=== PATIENT | female | born 2000 | race Caucasian/White ===

== ENCOUNTER 2022-04-30 11:41 | Observation (INO) ==
[2022-04-30 12:58] LABS: Basophils # (auto) 0.04 K/uL (0-0.2); Basophils % (auto) 0.6 %; Eosinophils # (auto) 0.06 K/uL (0-0.50); Eosinophils % (auto) 0.8 %; Hematocrit (blood only) 40.4 % (34.1-44.9); Immature Granulocytes # (auto) 0.03 K/uL (0.00-0.02); Immature Granulocytes % (auto) 0.4 %; Lymphocytes % (auto) 27.8 %; Mean Corpuscular Hemoglobin 29.2 pg (25.0-34.0); Mean Corpuscular Hgb Conc 34.7 g/dL (32.0-36.0); Mean Corpuscular Volume 84.2 fL (80.0-100.0); Mean Platelet Volume 10.1 fL (9.4-12.3); Monocytes # (auto) 0.49 K/uL (0.24-0.82); Monocytes % (auto) 6.8 %; Neutrophils # (auto) 4.57 K/uL (1.4-6.5); Neutrophils % (auto) 63.6 %; Platelet Count 319 K/uL (130-400); RDW Coefficient of Variation 12.3 % (11.5-14.5); RDW Standard Deviation 37.9 fL (36.4-46.3); White Blood Count 7.19 K/ul (4.8-10.8)
[2022-04-30 13:11] LABS: Acetaminophen < 3 ug/ml (10-30); Salicylate < 3.0 mg/dl (3.0-30)
[2022-04-30 13:13] LABS: Albumin Globulin Ratio 1.7 (0.9-2); Albumin Level 4.5 gm/dl (3.4-5.0); BUN Creatinine Ratio 19.7 (10-20); Bilirubin,Total 0.6 mg/dl (0.2-1.0); Calcium 9.3 mg/dl (8.5-10.1); Creatinine Clr Calc Pharmacy 99.1 ml/min; Est GFR (African American) 129.1 ml/min; Est GFR (Non-African American) 111.3 ml/min; Globulin 2.6 gm/dl (2.5-4.0); Potassium 3.9 mmol/L (3.5-5.1); Total Protein 7.1 gm/dl (6.0-8.3)
[2022-04-30] MEDS ORDERED: SODIUM CHLORIDE 0.9% 1000ML 1,000 ML IV ONE (13:37)
--- NOTE | 2022-04-30 14:08 | XRay Report ---
XR chest 1V portable HISTORY: Altered mental status. COMPARISON: None. FINDINGS: The lungs are clear. Cardiac silhouette is normal in size. No pleural effusions. No pneumot horax. IMPRESSION: No acute process. ACT 112: Negative or not required by law. Electronically signed by: Joseph Batista M.D. 04/30/2022 2:06 PM
--- NOTE | 2022-04-30 14:14 | Emergency Department Note ---
Impression & Plan AMS (altered mental status), Sinus congestion ED Provider Note INFORMANT: Patient and mother ED PROVIDER(S): Bar Hooks MD CHIEF COMPLAINT: Illness PLAN: Disposition: Admitted Condition: Good Outpatient prescription management: none Referral: None MEDICAL DECISION MAKING: Patient presented complaints of illness. She noted a recent diagnosis of a sinus infection and was taking amoxicillin. She had occasional myoclonic jerks on examination. She had an IV established. She was hydrated. Patient underwent a bio fire respiratory panel testing. She was found to have a non- COVID coronavirus. Chest x-ray was unremarkable CT imaging of the brain and head revealed some sinus disease but no evidence of abscess, tumor, or other acute pathology. Patient initially did not have any headache or meningeal findings. Her CBC, chemistry panel, toxicology screen and test were negative. The patient will need further management in the hospital. Patient was evaluated by the manager policy as well. We discussed the findings. Additional consultation can be made after hospitalization. I did discuss the case [facility] He did evaluate the patient in the ED. He did request a lumbar puncture be performed to help with further diagnosis and this was done as noted below. Patient was admitted by internal medicine for further management. Triage Nursing notes reviewed and agree them. Vital Signs: reviewed and remarkable for no significant abnormalities Prior /Outside records reviewed: none Differential diagnosis: Infection, hypoglycemia, electrolyte abnormalities, overdose, toxicologic, cardiac sources, intracerebral event, neurologic, trauma, as well as other pa thologies. Diagnostics, as interpreted by me: ECG: none Cardiac Monitoring: none Medical decision rules: none Imaging studies: Chest x-ray. Findings: A chest x-ray was performed and revealed no pneumothorax, effusion, infiltrate, pulmonary edema, free air under the diaphragm, or wide mediastinum. Impression: No acute disease. Head CT: A noncontrast CT scan of the head was performed and was negative for tumor, fracture, intracranial hemorrhage, or other acute pathology. Sinus disease noted. I refer you to the EMR for further details. HPI: The patient is a 21 year old female who presents to the Emergency Room with complaints of illness. This started about 4- 5 days ago and is persisting. Patient's mother is present and helps with history. Patient states that she had sinus congestion after returning from [place] and went to urgent care 5 days ago. She was prescribed amoxicillin. She stopped taking this yesterday. She was told she had a sinus infection due to congestion. Mother notes that the patient started to have some unusual behavior as she was somewhat combative, had some tics, and was outspoken. That was not her normal behavior. Mother notes that in 2017 the patient had an episode where she was presumed to have a viral infection and had a change in mental status. Mother states work-up from a medical standpoint including neurology and psychiatry did not reveal an obvious source. Patient was treated with amantadine and got better. She returned back to baseline and has been a normal student doing very well in school. No significant psychiatric history per the mother. No trauma reported. The patient also notes the following associated symptoms, runny nose and occasional cough. The patient has taken no other medication for relieving factors. Current pain is rated as 0/10. Pt denies LOC, headache, fevers, chills, diaphoresis, visual changes, neck pain, chest pain, breathing difficulties, naus ea, vomiting, abdominal pain, back pain, diarrhea, urinary symptoms, numbness, weakness, lymphadenopathy, rash, or other complaints. PAST MEDICAL HISTORY: See Below, no chronic illness PAST SURGICAL HISTORY: See Below, none SOCIAL HISTORY: See Below, [employer] student HOME MEDICATIONS: See Below ALLERGIES: See Below VITALS: See Below PHYSICAL EXAMINATION: GENERAL: Awake, alert, nontoxic-appearing, in no distress HENT: Normocephalic, atraumatic. Oropharynx unremarkable. No sinus tenderness to palpation. EYES: Normal conjunctiva. Sclera non-icteric. NECK: Inspection normal. Non-tender. Supple. No nuchal rigidity. Negative jolt accentuation. FROM. No masses. RESPIRATORY: Clear to auscultation. No wheezes. No rales. Normal respiratory effort. CARDIAC: Normal rate. Normal rhythm. No murmurs. No rubs. Extremities warm and well perfused. Pulses equal. No JVD. GI: Soft, non-distended. No tenderness to palpation. No rebound or guarding. No masses. RECTAL: Deferred. MUSCULOSKELETAL: Atraumatic. Chest examination reveals no tenderness. The back is symmetrical on inspection without obvious abnormality. There is no CVA tenderness to palpation. No joint edema. LOWER EXTREMITIES: Calves are equal size bilaterally and non-tender. No edema. No discoloration. NEURO: Exhibiting occasional myoclonic jerks. Following commands relatively well at times but then will not. Answering questions and speech is clear. Seems mildly confused but otherwise normal sensorium. No sensory or motor deficits noted. SKIN: No rash or jaundice noted. LUMBAR PUNCTURE: Indication: Altered mental status. Verbal consent was obtained after the risks and benefits were explained, including but not limited to headache, bleeding, scarring, infection, pain, and bone/joint/nerve damage. At t his time, the risks of the procedure are less than the risks of NOT performing the procedure. A time out was taken and the correct patient and site identified. The patient was placed in the right lateral decubitus position and the back was prepped and draped in the standard fashion with betadine. The L3 intervertebral space was identified, anesthetized with lidocaine, and the spinal needle was i nserted through the skin with the bevel parallel to the dural fibers. The needle was carefully advanced into the sac and 4 tubes of clear CSF was obtained. There was an initial tinge of blood noted. The patient did have several episodes of coughing and occasional jerks during the insertion. The blood cleared visibly through the first tube. The stylet was replaced and the needle was removed. A bandaid was placed and the patient was placed in the supine position. The patient tolerated the procedure well and there were no complications. Past Med/Surg History Social History Smoking Status: Never smoker Feels Safe at Home: Yes Home Meds Home Medications Medication Instructions Recorded Confirmed amoxicillin 400 mg/5 mL oral 04/30/22 suspension famotidine 20 mg tablet 20 mg 04/30/22 norgestimate 0.18 mg/0.215 mg/0.25 tab 04/30/22 mg-ethinyl estradiol 25 mcg tablet ([id number]) Results & Data (ED) Vital Signs Vital Signs - 24 hr 04/30/22 11:45 04/30/22 11:41 04/30/22 15:40 Temperature 36.7 C Temperature Source Temporal Artery Scan Pulse Rate 87 Pulse Rate [Apical] 60 Pulse Rhythm Regular Pulse Rhythm [Apical] Regular Respiratory Rate 20 16 16 Respiratory Effort / Characteristics Non-Labored Non-Labored Non-Labored Spontaneous Respiratory Depth Normal Normal Normal Respiratory Pattern Regular Blood Pressure 112/85 Blood Pressure [Left Arm] 127/64 Blood Pressure Mean 94 Blood Pressure Mean [Left Arm] 85 Pulse Oximetry 96 97 Oxygen Delivery Method Room Air Sepsis Recent Fever Within 48 Hours No Sepsis New/Unexplained Change in Mental Status No Sepsis Action Taken by Nursing No Action Required 04/30/22 17:52 Temperature Temperature Source Pulse Rate Pulse Rate [Apical] 84 Pulse Rhythm Pulse Rhythm [Apical] Regular Respiratory Rate 16 Respiratory Effort / Characteristics Non-Labored Spontaneous Respiratory Depth Normal Respiratory Pattern Blood Pressure Blood Pressure [Left Arm] 110/60 Blood Pressure Mean Blood Pressure Mean [Left Arm] 76 Pulse Oximetry 97 Oxygen Delivery Method Room Air Sepsis Recent Fever Within 48 Hours Sepsis New/Unexplained Change in Mental Status Sepsis Action Taken by Nursing Laboratory Data 04/30/22 12:25 04/30/22 12:25 Lab Results 04/30/22 04/30/22 04/30/22 Range/Units 12:25 12:25 12:25 WBC 7.19 (4.8-10.8) K/ul RBC 4.80 (3.93-5.22) M/uL Hgb 14.0 (12.0-16.0) g/dl Hct 40.4 (34.1-44.9) % MCV 84.2 (80.0-100.0) fL MCH 29.2 (25.0-34.0) pg MCHC 34.7 (32.0-36.0) g/dL RDW Std Deviation 37.9 (36.4-46.3) fL RDW Coeff of Luci 12.3 (11.5-14.5) % Plt Count 319 (130-400) K/uL MPV 10.1 (9.4-12.3) fL Immature Gran % (Auto) 0.4 % Neut % (Auto) 63.6 % Lymph % (Auto) 27.8 % [place]han % (Auto) 6.8 % Eos % (Auto) 0.8 % Baso % (Auto) 0.6 % Neut # (Auto) 4.57 (1.4-6.5) K/uL Lymph # (Auto) 2.00 (1.2-3.4) K/uL [place] # (Auto) 0.49 (0.24-0.82) K/uL Eos # (Auto) 0.06 (0-0.50) K/uL Baso # (Auto) 0.04 (0-0.2) K/uL Immature Gran # (Auto) 0.03 H (0.00-0.02) K/uL Sodium 138 (136-145) mmol/L Potassium 3.9 (3.5-5.1) mmol/L Chloride 105 (98-107) mmol/L Carbon Dioxide 23 (21-32) mmol/L Anion Gap 10 (3-11) BUN 15 (6-23) mg/dl Creatinine 0.76 (0.6-1.2) mg/dl Est Cr Clr Drug Dosing 99.1 ml/min Est GFR ( Amer) 129.1 ml/min Est GFR (Non-Af Amer) 111.3 ml/min BUN/Creatinine Ratio 19.7 (10-20) Glucose 84 (70-99(Fasting)) mg/dl Calcium 9.3 (8.5-10.1) mg/dl Total Bilirubin 0.6 (0.2-1.0) mg/dl AST 22 (13-39) U/L ALT 15 (7-52) U/L Alkaline Phosphatase 68 (34-104) U/L Total Protein 7.1 (6.0-8.3) gm/dl Albumin 4.5 (3.4-5.0) gm/dl Globulin 2.6 (2.5-4.0) gm/dl Albumin/Globulin Ratio 1.7 (0.9-2) Procalcitonin (0-0.5) ng/ml TSH 2.795 (0.300-4.500) uIu/ml HCG, Qual (Negative) Fluid Comment CSF Appearance CSF Color Xanthrochromic CSF WBC (0-5) CSF RBC (0-) CSF Cell Count Tube # CSF Glucose (40-70) mg/dl CSF Total Protein (15-45) mg/dl Salicylates (3.0-30) mg/dl Acetaminophen (10-30) ug/ml Ethyl Alcohol mg/dL (<10.0) mg/dl Adenovirus (PCR) (NotDetected) B. pertussis DNA (PCR) (NotDetected) B.parapertussis DNA PCR (NotDetected) C. pneumoniae DNA (PCR) (NotDetected) Coronavirus OC43 (PCR) (NotDetected) Coronavirus HKU1 (PCR) (NotDetected) Coronavirus 229E (PCR) (NotDetected) SARS-CoV-2 (PCR) (NotDetected) Coronavirus NL63 (PCR) (NotDetected) Human Metapneumovir PCR (NotDetected) Influenza Type A (PCR) (NotDetected) Influenza Type B (PCR) (NotDetected) M. pneumoniae (PCR) (NotDetected) Parainfluenza 1 (PCR) (NotDetected) Parainfluenza 2 (PCR) (NotDetected) Parainfluenza 3 (PCR) (NotDetected) Parainfluenza 4 (PCR) (NotDetected) RSV (PCR) (NotDetected) Entero/Rhino (PCR) (NotDetected) 04/30/22 04/30/22 04/30/22 Range/Units 12:25 12:25 12:25 WBC (4.8-10.8) K/ul RBC (3.93-5.22) M/uL Hgb (12.0-16.0) g/dl Hct (34.1-44.9) % MCV (80.0-100.0) fL MCH (25.0-34.0) pg MCHC (32.0-36.0) g/dL RDW Std Deviation (36.4-46.3) fL RDW Coeff of Luci (11.5-14.5) % Plt Count (130-400) K/uL MPV (9.4-12.3) fL Immature Gran % (Auto) % Neut % (Auto) % Lymph % (Auto) % [place] % (Auto) % Eos % (Auto) % Baso % (Auto) % Neut # (Auto) (1.4-6.5) K/uL Lymph # (Auto) (1.2-3.4) K/uL [place] # (Auto) (0.24-0.82) K/uL Eos # (Auto) (0-0.50) K/uL Baso # (Auto) (0-0.2) K/uL Immature Gran # (Auto) (0.00-0.02) K/uL Sodium (136-145) mmol/L Potassium (3.5-5.1) mmol/L Chloride (98-107) mmol/L Carbon Dioxide (21-32) mmol/L Anion Gap (3-11) BUN (6-23) mg/dl Creatinine (0.6-1.2) mg/dl Est Cr Clr Drug Dosing ml/min Est GFR ( Amer) ml/min Est GFR (Non-Af Amer) ml/min BUN/Creatinine Ratio (10-20) Glucose (70-99(Fasting)) mg/dl Calcium (8.5-10.1) mg/dl Total Bilirubin (0.2-1.0) mg/dl AST (13-39) U/L ALT (7-52) U/L Alkaline Phosphatase (34-104) U/L Total Protein (6.0-8.3) gm/dl Albumin (3.4-5.0) gm/dl Globulin (2.5-4.0) gm/dl Albumin/Globulin Ratio (0.9-2) Procalcitonin (0-0.5) ng/ml TSH (0.300-4.500) uIu/ml HCG, Qual Negative (Negative) Fluid Comment CSF Appearance CSF Color Xanthrochromic CSF WBC (0-5) CSF RBC (0-) CSF Cell Count Tube # CSF Glucose (40-70) mg/dl CSF Total Protein (15-45) mg/dl Salicylates < 3.0 L (3.0-30) mg/dl Acetaminophen < 3 L (10-30) ug/ml Ethyl Alcohol mg/dL < 10.0 (<10.0) mg/dl Adenovirus (PCR) (NotDetected) B. pertussis DNA (PCR) (NotDetected) B.parapertussis DNA PCR (NotDetected) C. pneumoniae DNA (PCR) (NotDetected) Coronavirus OC43 (PCR) (NotDetected) Coronavirus HKU1 (PCR) (NotDetected) Coronavirus 229E (PCR) (NotDetected) SARS-CoV-2 (PCR) (NotDetected) Coronavirus NL63 (PCR) (NotDetected) Human Metapneumovir PCR (NotDetected) Influenza Type A (PCR) (NotDetected) Influenza Type B (PCR) (NotDetected) M. pneumoniae (PCR) (NotDetected) Parainfluenza 1 (PCR) (NotDetected) Parainfluenza 2 (PCR) (NotDetected) Parainfluenza 3 (PCR) (NotDetected) Parainfluenza 4 (PCR) (NotDetected) RSV (PCR) (NotDetected) Entero/Rhino (PCR) (NotDetected) 04/30/22 04/30/22 04/30/22 Range/Units 12:48 13:32 17:41 WBC (4.8-10.8) K/ul RBC (3.93-5.22) M/uL Hgb (12.0-16.0) g/dl Hct (34.1-44.9) % MCV (80.0-100.0) fL MCH (25.0-34.0) pg MCHC (32.0-36.0) g/dL RDW Std Deviation (36.4-46.3) fL RDW Coeff of Luci (11.5-14.5) % Plt Count (130-400) K/uL MPV (9.4-12.3) fL Immature Gran % (Auto) % Neut % (Auto) % Lymph % (Auto) % [place] % (Auto) % Eos % (Auto) % Baso % (Auto) % Neut # (Auto) (1.4-6.5) K/uL Lymph # (Auto) (1.2-3.4) K/uL [place] # (Auto) (0.24-0.82) K/uL Eos # (Auto) (0-0.50) K/uL Baso # (Auto) (0-0.2) K/uL Immature Gran # (Auto) (0.00-0.02) K/uL Sodium (136-145) mmol/L Potassium (3.5-5.1) mmol/L Chloride (98-107) mmol/L Carbon Dioxide (21-32) mmol/L Anion Gap (3-11) BUN (6-23) mg/dl Creatinine (0.6-1.2) mg/dl Est Cr Clr Drug Dosing ml/min Est GFR ( Amer) ml/min Est GFR (Non-Af Amer) ml/min BUN/Creatinine Ratio (10-20) Glucose (70-99(Fasting)) mg/dl Calcium (8.5-10.1) mg/dl Total Bilirubin (0.2-1.0) mg/dl AST (13-39) U/L ALT (7-52) U/L Alkaline Phosphatase (34-104) U/L Total Protein (6.0-8.3) gm/dl Albumin (3.4-5.0) gm/dl Globulin (2.5-4.0) gm/dl Albumin/Globulin Ratio (0.9-2) Procalcitonin < 0.05 (0-0.5) ng/ml TSH (0.300-4.500) uIu/ml HCG, Qual (Negative) Fluid Comment CSF Appearance Clear CSF Color Colorless Xanthrochromic No xanthochromia CSF WBC 6 H (0-5) CSF RBC 20 (0-) CSF Cell Count Tube # 3 CSF Glucose (40-70) mg/dl CSF Total Protein (15-45) mg/dl Salicylates (3.0-30) mg/dl Acetaminophen (10-30) ug/ml Ethyl Alcohol mg/dL (<10.0) mg/dl Adenovirus (PCR) Not Detected (NotDetected) B. pertussis DNA (PCR) Not Detected (NotDetected) B.parapertussis DNA PCR Not Detected (NotDetected) C. pneumoniae DNA (PCR) Not Detected (NotDetected) Coronavirus OC43 (PCR) Not Detected (NotDetected) Coronavirus HKU1 (PCR) DETECTED A* (NotDetected) Coronavirus 229E (PCR) Not Detected (NotDetected) SARS-CoV-2 (PCR) Not Detected (NotDetected) Coronavirus NL63 (PCR) Not Detected (NotDetected) Human Metapneumovir PCR Not Detected (NotDetected) Influenza Type A (PCR) Not Detected (NotDetected) Influenza Type B (PCR) Not Detected (NotDetected) M. pneumoniae (PCR) Not Detected (NotDetected) Parainfluenza 1 (PCR) Not Detected (NotDetected) Parainfluenza 2 (PCR) Not Detected (NotDetected) Parainfluenza 3 (PCR) Not Detected (NotDetected) Parainfluenza 4 (PCR) Not Detected (NotDetected) RSV (PCR) Not Detected (NotDetected) Entero/Rhino (PCR) Not Detected (NotDetected) 04/30/22 Range/Units 17:41 WBC (4.8-10.8) K/ul RBC (3.93-5.22) M/uL Hgb (12.0-16.0) g/dl Hct (34.1-44.9) % MCV (80.0-100.0) fL MCH (25.0-34.0) pg MCHC (32.0-36.0) g/dL RDW Std Deviation (36.4-46.3) fL RDW Coeff of Luci (11.5-14.5) % Plt Count (130-400) K/uL MPV (9.4-12.3) fL Immature Gran % (Auto) % Neut % (Auto) % Lymph % (Auto) % [place] % (Auto) % Eos % (Auto) % Baso % (Auto) % Neut # (Auto) (1.4-6.5) K/uL Lymph # (Auto) (1.2-3.4) K/uL [place] # (Auto) (0.24-0.82) K/uL Eos # (Auto) (0-0.50) K/uL Baso # (Auto) (0-0.2) K/uL Immature Gran # (Auto) (0.00-0.02) K/uL Sodium (136-145) mmol/L Potassium (3.5-5.1) mmol/L Chloride (98-107) mmol/L Carbon Dioxide (21-32) mmol/L Anion Gap (3-11) BUN (6-23) mg/dl Creatinine (0.6-1.2) mg/dl Est Cr Clr Drug Dosing ml/min Est GFR ( Amer) ml/min Est GFR (Non-Af Amer) ml/min BUN/Creatinine Ratio (10-20) Glucose (70-99(Fasting)) mg/dl Calcium (8.5-10.1) mg/dl Total Bilirubin (0.2-1.0) mg/dl AST (13-39) U/L ALT (7-52) U/L Alkaline Phosphatase (34-104) U/L Total Protein (6.0-8.3) gm/dl Albumin (3.4-5.0) gm/dl Globulin (2.5-4.0) gm/dl Albumin/Globulin Ratio (0.9-2) Procalcitonin (0-0.5) ng/ml TSH (0.300-4.500) uIu/ml HCG, Qual (Negative) Fluid Comment CSF Appearance CSF Color Xanthrochromic CSF WBC (0-5) CSF RBC (0-) CSF Cell Count Tube # CSF Glucose 44 (40-70) mg/dl CSF Total Protein 14.5 L (15-45) mg/dl Salicylates (3.0-30) mg/dl Acetaminophen (10-30) ug/ml Ethyl Alcohol mg/dL (<10.0) mg/dl Adenovirus (PCR) (NotDetected) B. pertussis DNA (PCR) (NotDetected) B.parapertussis DNA PCR (NotDetected) C. pneumoniae DNA (PCR) (NotDetected) Coronavirus OC43 (PCR) (NotDetected) Coronavirus HKU1 (PCR) (NotDetected) Coronavirus 229E (PCR) (NotDetected) SARS-CoV-2 (PCR) (NotDetected) Coronavirus NL63 (PCR) (NotDetected) Human Metapneumovir PCR (NotDetected) Influenza Type A (PCR) (NotDetected) Influenza Type B (PCR) (NotDetected) M. pneumoniae (PCR) (NotDetected) Parainfluenza 1 (PCR) (NotDetected) Parainfluenza 2 (PCR) (NotDetected) Parainfluenza 3 (PCR) (NotDetected) Parainfluenza 4 (PCR) (NotDetected) RSV (PCR) (NotDetected) Entero/Rhino (PCR) (NotDetected) Administered Medications Discontinued Medications Sodium Chloride (Nss 1000ml) 1,000 mls @ 999 mls/hr IV .Q1H1M ONE Stop: 04/30/22 14:37 Last Infusion: 04/30/22 14:58 Dose: 0 mls/hr Documented By: Admin: 04/30/22 13:30 Dose: 999 mls/hr Documented By: NMS Ioversol (Optiray 350 100ml) 80 ml IV ONCE ONE Stop: 04/30/22 14:29 Last Admin: 04/30/22 14:28 Dose: 80 ml Documented By: CISCO Imaging Data Radiologist's Impression: Chest X-Ray 04/30/22 13:36 XR chest 1V portable HISTORY: Altered mental status. COMPARISON: None. FINDINGS: The lungs are clear. Cardiac silhouette is normal in size. No pleural effusions. No pneumothorax. IMPRESSION: No acute process. ACT 112: Negative or not required by law. Electronically signed by: Joseph Batista M.D. 04/30/2022 2:[address] 04/30/22 13:36 CT SCAN OF THE BRAIN COMBO CLINICAL HISTORY: Change in mental status. Recent sinus infection. COMPARISON STUDY: No priors. TECHNIQUE: Axial CT scan of the brain is performed from the vertex to the skull base before and following the IV administration of 80 cc of Optiray 350. IV contrast was administered without complication. A dose lowering technique was utilized adhering to the principles of ALARA. The unenhanced scan was performed twice due to motion artifact. CT DOSE: 1612.45 mGy.cm FINDINGS: Brain parenchyma: The brain parenchyma is normal in appearance. There is no hemorrhage, mass effect, or evidence of acute territorial ischemia by CT criteria. No enhancing lesion is seen on the postcontrast series. Maravilla-white matter differentiation is preserved. No extra-axial fluid collection is seen. Ventricles, sulci, cisterns: Normal in configuration. Cavum septum pellucidum is incidentally noted. Intracranial vasculature: The visualized intracranial vasculature at the skull base is normal in appearance. The dural sinuses appear patent. Calvarium: Unremarkable. Sinuses and mastoids: There is mild to moderate mucosal thickening within the maxillary antra. Moderate to severe mucosal thickening is also seen within the anterior ethmoid sinuses. There is trace pleural thickening the frontal sinuses. The mastoid air cells are well pneumatized. Orbits: The bony orbits are grossly intact. IMPRESSION: 1. No acute intracranial abnormality. 2. Paranasal sinus disease as above. ACT 112: Negative or not required by law. Electronically signed by: Db Serrano M.D. 04/30/2022 2:38 PM Discharge Plan Visit Data Chief Complaint: Illness Stated Complaint: UNUSUAL BEHAVIOR ED Provider: Bar Hooks Discharge Problem: AMS (altered mental status), Sinus congestion Forms Stand Alone Forms: My [facility] Prescriptions Prescriptions: No Action famotidine 20 mg tablet 20 mg amoxicillin 400 mg/5 mL suspension for reconstitution norgestimate-ethinyl estradiol [[id number]] 0.18/0.215/0.25 mg-25 mcg tablet Referrals Referrals: PCP,NO [Primary Care Provider] -
[2022-04-30 14:17] LABS: Pregnancy Test, Serum Negative (Negative)
[2022-04-30] MEDS ORDERED: OPTIRAY 350 100ml IV ONE (14:28)
--- NOTE | 2022-04-30 14:39 | CT Scan Report ---
CT SCAN OF THE BRAIN COMBO CLINICAL HISTORY: Change in mental status. Recent sinus infection. COMPARISON STUDY: No priors. TECHNIQUE: Axial CT scan of the brain is performed from the vertex to the skull base before and follo wing the IV administration of 80 cc of Optiray 350. IV contrast was administered without complication . A dose lowering technique was utilized adhering to the principles of ALARA. The unenhanced scan was performed twice due to motion artifact. CT DOSE: 1612.45 mGy.cm FINDINGS: Brain parenchyma: The brain parenchyma is normal in appearance. There is no hemorrhage, mass effect, or evidence of acute territorial ischemia by CT criteria. No enhancing lesion is seen on the postcont rast series. Maravilla-white matter differentiation is preserved. No extra-axial fluid collection is seen. Ventricles, sulci, cisterns: Normal in configuration. Cavum septum pellucidum is incidentally noted. Intracranial vasculature: The visualized intracranial vasculature at the skull base is normal in appe arance. The dural sinuses appear patent. Calvarium: Unremarkable. Sinuses and mastoids: There is mild to moderate mucosal thickening within the maxillary antra. Modera te to severe mucosal thickening is also seen within the anterior ethmoid sinuses. There is trace pleu ral thickening the frontal sinuses. The mastoid air cells are well pneumatized. Orbits: The bony orbits are grossly intact. IMPRESSION: 1. No acute intracranial abnormality. 2. Paranasal sinus disease as above. ACT 112: Negative or not required by law. Electronically signed by: Db Serrano M.D. 04/30/2022 2:38 PM
[2022-04-30 14:58] LABS: Adenovirus PCR Not Detected (NotDetected); Bordetella parapertussis PCR Not Detected (NotDetected); Bordetella pertussis PCR Not Detected (NotDetected); Chlamydia pneumoniae PCR Not Detected (NotDetected); Coronavirus 229E PCR Not Detected (NotDetected); Coronavirus CoV-2 (COVID19)PCR Not Detected (NotDetected); Coronavirus NL63 PCR Not Detected (NotDetected); Coronavirus OC43PCR Not Detected (NotDetected); Human Metapneumovirus PCR Not Detected (NotDetected); Influenza A PCR Not Detected (NotDetected); Influenza B PCR Not Detected (NotDetected); Mycoplasma pneumoniae PCR Not Detected (NotDetected); Parainfluenza Virus 1 PCR Not Detected (NotDetected); Parainfluenza Virus 2 PCR Not Detected (NotDetected); Parainfluenza Virus 3 PCR Not Detected (NotDetected); Parainfluenza Virus 4 PCR Not Detected (NotDetected); Respiratory Syncytial VirusPCR Not Detected (NotDetected); Rhinovirus/Enterovirus PCR Not Detected (NotDetected)
[2022-04-30 15:31] LABS: Coronavirus HKU1 PCR DETECTED (NotDetected)
--- NOTE | 2022-04-30 16:31 | History & Physical Report ---
Date of Service April 30, 2022 Assessment & Plan (1) AMS (altered mental status): Plan: Significant change in personality with associated tics. Prior similar episode in 2017 with mainly mutism without definitive diagnosis but eventually improved with time/amantadine. Viral vs. autoimmune encephalitis vs. psychiatric response to illness Lumbar puncture to be performed by emergency department - discussed with Dr Davis and will also send CSF for MS panel and get serum encephalitis antibody evaluation Brain MRI and EEG per neurology recommendations Consult neurology Consult psychiatry (2) Coronavirus infection: Plan: No specific isolation precautions warranted although recommend single room No sinus pain on discussion with patient and she declines antibiotics due to perceived side effects therefore will defer on treatment for possible sinusitis on admission as suspect her illness is all viral. Plan VTE Prophylaxis - low risk Diet - regular Disposition - observation status to med/surg Admission and Anticipated Discharge Date Admission Date: April 30, 2022 History of Present Illness Chief Complaint: Altered mental state Primary Care Provider: NO PCP Sarah Hernandez is a 21 year old female who presents to the ER with change in mental status. History is mostly taken from her mother at bedside due to patient altered mental state. Reportedly no baseline psychiatric illness or medications. She is a [employer] Student. Nasal congestion started around April 22. Worsening symptoms but without fever or chills. She was prescribed amoxicillin for unclear diagnosis but presumably sinusitis on Apr 24 but reportedly started on Apr 26 for 3 days then stopped due to perceived side effects although she c annot tell me what these were. Abrupt change in mental status started 4-5 days ago with associated combative behavior and myoclonic jerks progressively getting worse since then. Her mother reports a similar episode after a viral illness with her being hospitalized at [facility] in [place] in 2017. No definitive diagnosis and she reports lumbar puncture was not a good sample and not diagnostic. She was passed between neurology and psychiatry until seeing a neuropsychiatrist as an outpatient and reportedly improved on amantadine. Viral encephalitis was mentioned as a possible diagnosis. Allergies Allergy/AdvReac Type Severity Reaction Status Date / Time No Known Allergies Allergy Verified 05/01/22 01:11 Home Medications Medication Instructions Recorded Confirmed Type amoxicillin 400 mg/5 mL oral 04/30/22 History suspension famotidine 20 mg tablet 20 mg 04/30/22 History norgestimate 0.18 mg/0.215 mg/0.25 tab 04/30/22 History mg-ethinyl estradiol 25 mcg tablet (Ges-[id number]) Past Med/Surg History Medical History (Updated 04/30/22 @ 23:13 by Ankur Lopez MD) No significant past medical history Surgical History (Updated 04/30/22 @ 23:13 by Ankur Lopez MD) No significant past surgical history Social History Smoking Status: Never smoker Second Hand Exposure: No; Do You Dip or Chew Tobacco: No; Tobacco Cessation Education Requested by Patient: No Hx Alcohol Use: Yes Hx Substance Use: No Preferred Language: Czech Communication Ability: Effective City Superintendent Required: No Current Living Situation: Alone Current Living Situation Comment: Lives alone in apartment Feels Safe at Home: Yes Safety Concerns: Feels Safe At This Time Assistive Devices: Glasses Assistive Devices Comment: Reading glasses, not present Review of Systems Review of Systems: All systems reviewed & are unremarkable except as noted in HPI & below Physical Exam Constitutional: WD/WN, vitals as above Eyes: Patient non-compliant with exam Respiratory: normal respiratory effort, lungs clear to auscultation Cardiovascular: RRR, no murmur, no edema Gastrointestinal (Abdomen): normal bowel sounds, soft, nontender, no hepatosplenomegaly Musculoskeletal: no cyanosis or clubbing, extremities motor strength 5/5 Skin: no rashes, warm and dry Neurologic: moves all extremities, awake and + confused; no focal motor deficits (no lateralizing deficit) Psychiatric: Orientation: alert; + not oriented x 3 (no answering questions) Apperance: appeared stated age Motor Behavior: + psychomotor agitation; + abnormal motor movements (bilateral sudden jerking movements of extremities) Results & Data Results & Data ([facility]) Vital Signs (Past 12 Hours) Vital Signs Temp Pulse Pulse Resp BP BP Pulse Ox 04/30/22 15:40 60 16 127/64 97 04/30/22 11:41 16 04/30/22 11:45 36.7 C 87 20 112/85 96 O2 Del Method 04/30/22 15:40 04/30/22 11:41 04/30/22 11:45 Room Air Laboratory Results Abnormal lab results 04/30/22 04/30/22 04/30/22 Range/Units 12:25 12:25 13:32 Immature Gran # (Auto) 0.03 H (0.00-0.02) K/uL CSF WBC (0-5) CSF Total Protein (15-45) mg/dl Salicylates < 3.0 L (3.0-30) mg/dl Acetaminophen < 3 L (10-30) ug/ml Coronavirus HKU1 (PCR) DETECTED A* (NotDetected) 04/30/22 04/30/22 Range/Units 17:41 17:41 Immature Gran # (Auto) (0.00-0.02) K/uL CSF WBC 6 H (0-5) CSF Total Protein 14.5 L (15-45) mg/dl Salicylates (3.0-30) mg/dl Acetaminophen (10-30) ug/ml Coronavirus HKU1 (PCR) (NotDetected) Diagnostic Findings CT SCAN OF THE BRAIN COMBO CLINICAL HISTORY: Change in mental status. Recent sinus infection. COMPARISON STUDY: No priors. TECHNIQUE: Axial CT scan of the brain is performed from the vertex to the skull base before and following the IV administration of 80 cc of Optiray 350. IV contrast was administered without complication. A dose lowering technique was utilized adhering to the principles of ALARA. The unenhanced scan was performed twice due to motion artifact. CT DOSE: 1612.45 mGy.cm FINDINGS: Brain parenchyma: The brain parenchyma is normal in appearance. There is no hemorrhage, mass effect, or evidence of acute territorial ischemia by CT criteria. No enhancing lesion is seen on the postcontrast series. Mar[place]-white matter differentiation is preserved. No extra-axial fluid collection is seen. Ventricles, sulci, cisterns: Normal in configuration. Cavum septum pellucidum is incidentally noted. Intracranial vasculature: The visualized intracranial vasculature at the skull base is normal in appearance. The dural sinuses appear patent. Calvarium: Unremarkable. Sinuses and mastoids: There is mild to moderate mucosal thickening within the maxillary antra. Moderate to severe mucosal thickening is also seen within the anterior ethmoid sinuses. There is trace pleural thickening the frontal sinuses. The mastoid air cells are well pneumatized. Orbits: The bony orbits are grossly intact. IMPRESSION: 1. No acute intracranial abnormality. 2. Paranasal sinus disease as above. XR chest 1V portable HISTORY: Altered mental status. COMPARISON: None. FINDINGS: The lungs are clear. Cardiac silhouette is normal in size. No pleural effusions. No pneumothorax. IMPRESSION: No acute process. Medications Administered ER Medications Given: NSS 1L bolus Code Status & VTE Plan Code Status Full VTE Prophylaxis Plan VTE Prophylaxis will be ordered: No PG Care Time/CCT Total # of Minutes Spent Total Time Spent: 70 Total Time Spent with Patient: Total time spent is greater than 50% in coordination of care (as documented) at patient's floor/unit and/or counseling patient: Coding Level of Care Code 87029 INT INP/OBS CARE 3/75MIN Diagnoses AMS (altered mental status) R41.82 Coronavirus infection B34.2
[2022-04-30 18:28] LABS: Appearance CSF Clear; CSF Count Tube # 3; CSF Xanthrochromic No xanthochromia; Color CSF Colorless
[2022-04-30 18:29] LABS: Total Protein CSF 14.5 mg/dl (15-45)
[2022-04-30] MEDS ORDERED: ACETAMINOPHEN 325 MG TAB PO STA (18:32)
[2022-04-30 19:31] LABS: Cryptococcus neoformans/ga PCR Not Detected (NotDetected); Cytomegalovirus PCR Not Detected (NotDetected); Enterovirus PCR Not Detected (NotDetected); Escherichia coli K1 PCR Not Detected (NotDetected); Haemophilius influenzae PCR Not Detected (NotDetected); Herpes Simplex Virus 1 PCR Not Detected (NotDetected); Herpes Simplex Virus 2 PCR Not Detected (NotDetected); Human Herpes Virus 6 PCR Not Detected (NotDetected); Human Parechovirus PCR Not Detected (NotDetected); Listeria monocytogenes PCR Not Detected (NotDetected); Neisseria meningitidis PCR Not Detected (NotDetected); Streptococcus agalactiae PCR Not Detected (NotDetected); Streptococcus pneumoniae PCR Not Detected (NotDetected); Varicella Zoster Virus PCR Not Detected (NotDetected)
[2022-04-30] MEDS ORDERED: HALOPERIDOL LACTATE 5 MG/ML 1 ML VIAL IM STA (21:48)
[2022-04-30] MEDS ORDERED: LORazepam 2 MG/1 ML VIAL IM STA (23:05)
[2022-04-30] MEDS ORDERED: Patient's ALLERGY Info needs ENTERED STA (23:06)
[2022-04-30] MEDS: ACETAMINOPHEN 325 MG TAB PO PRN (23:24)
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
[2022-05-01 08:59] LABS: Appearance Urine Slightly Cloudy (Clear); Bilirubin Urine Negative (Negative); Blood Urine Trace-lysed (Negative); Color Urine Yellow; Glucose Urine UA Negative (Negative); Ketones Urine 3+ (Negative); Leukocyte Esterase Urine 2+ (Negative); Nitrite Urine Negative (Negative); Protein Urine Negative (Negative); Specific Gravity Urine >= 1.030 (1.000-1.030); Urobilinogen Urine Negative (Negative); pH Urine 5.5 (4.5-7.5)
[2022-05-01 09:24] LABS: Bacteria Urine 1+ (Negative); Epithelial Cell Urine >30 /lpf (0-5); WBC Urine >30 /hpf (0-5)
[2022-05-01 09:26] LABS: RBC Urine 0-4 /hpf (0-4)
[2022-05-01 10:21] LABS: Amphetamines+Metham, Urine Neg (Neg); Barbiturates, Urine Neg (Neg); Benzodiazepine, Urine Neg (Neg); Cocaine, Urine Neg (Neg); MDMA (Ecstacy), Urine Neg (Neg); Methadone, Urine Neg (Neg); Opiate, Urine Neg (Neg); Phencyclidine, Urine Neg (Neg)
--- NOTE | 2022-05-01 10:28 | Neurology Consultation ---
Date of Consultation May 01, 2022 Assessment & Plan (1) AMS (altered mental status): (2) Coronavirus infection: Plan Subacute change in mental status potentially triggered by recent non-COVID coronavirus sinus infection and/or use of amoxicillin. She has been exhibiting combativeness, motor tics, jerking of the limbs and was outspoken. She became increasingly agitated overnight, after her parents left the room to retrieve her laptop and books for school. She was striking her fist on the bed, pacing around the room to run the water at the sink on full open, was continuously pulling paper towels out of the dispenser. Ultimately required Haldol and lorazepam IM. May have been hallucinating. This morning, patient is neurologically intact. She was pleasant and cooperative and does not exhibit any abnormal movements or abnormal behavior. She has poor eye contact and is a very guarded historian but does endorse feeling anxious. She has had an unremarkable CT of the head and a lumbar puncture. Patient's history is notable for a very similar episode that occurred in 2017 with a reportedly negative medical/neurological evaluation. The reason for this patient's recent "neurobehavioral episode" is not entirely clear. The episode may have been provoked by a recent non-COVID coronavirus infection and or possibly a side effect of amoxicillin. Her unremarkable lumbar puncture and CSF bio fire panel would argue against infectious encephalitis. Autoimmune or paraneoplastic encephalitis could be considered although she appears quite well this morning. One could also consider ictal or postictal phenomena related to unrecognized seizures, however, I think this diagnosis is probably unlikely. Would recommend brain MRI with and without contrast and EEG. Autoimmune encephalitis panel has been ordered, (as discussed with Dr. Lopez). I would also recommend screening for lupus, DAVID screen with titer, consider DAVID 12 panel. Nonetheless, lupus cerebritis unlikely but not excluded. Psychiatry consultation as ordered. 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 Her symptoms reportedly began about 5 days prior, characterized by unusual behavior, somewhat combative, involuntary motor tics, and being unusually outspoken. The symptoms occur in the context of recent treatment for a sinus infection with amoxicillin. She has stopped taking this medication the day prior to her presentation, however, given the concern that it was causing side effects. The patient apparently has a history of a similar episode that occurred in 2017, after a presumed viral infection that was associated with change in mental status. She had an extensive evaluation at that time at an outside hospital that was apparently unremarkable. Patient does not have a known history of psychiatric disorder although she does endorse anxiety at this time. I note the patient was extremely agitated overnight, after her parents left the room to go to the car to retrieve patient's laptop and books for school. Patient started striking the bed with her fist and was pacing around the room and an upset fashion. She had turned the water faucet on full open and was continuously pulling paper towels from the dispenser. These events were described in the nursing note. She was apparently treated with IM Haldol and lorazepam. She may have had hallucinations at that time as well. She has been on one-to-one observation since that time. In any event, this morning, the patient is quite pleasant, nonagitated, and seems to answer que stions appropriately. He does not exhibit any abnormal movements, and does not appear to be acutely ill from a neurological perspective. She is a somewhat guarded historian and gives poor eye contact. She states that she just feels anxious but does not elaborate much further. She denies fever, chills, night sweats, neck pain or stiffness, muscle pain, weakness, or sensory loss. She denies experiencing any difficulty with balance or coordination. She denies any tremors or abnormal movements. Allergies Allergy/AdvReac Type Severity Reaction Status Date / Time No Known Allergies Allergy Verified 05/01/22 01:11 Home Medications Medication Instructions Recorded Confirmed Type amoxicillin 400 mg/5 mL oral 04/30/22 History suspension famotidine 20 mg tablet 20 mg 04/30/22 History norgestimate 0.18 mg/0.215 mg/0.25 tab 04/30/22 History mg-ethinyl estradiol 25 mcg tablet ([id number]) Patient History Medical History No significant past medical history Surgical History No significant past surgical history Social History Smoking Status: Never smoker Second Hand Exposure: No; Do You Dip or Chew Tobacco: No; Tobacco Cessation Education Requested by Patient: No Hx Alcohol Use: Yes Hx Substance Use: No Preferred Language: Serbian Communication Ability: Effective Bull Driver Required: No Current Living Situation: Alone Current Living Situation Comment: Lives alone in apartment Feels Safe at Home: Yes Safety Concerns: Feels Safe At This Time Assistive Devices: Glasses Assistive Devices Comment: Reading glasses, not present Review of Systems Constitutional: no fever and no chills Eyes: no blind spots and no diplopia Ear, Nose, Mouth, Throat: no tinnitus and no hearing loss Respiratory: no cough and no dyspnea Cardiovascular: no chest pain and no palpitations Gastrointestinal: no nausea and no vomiting Genitourinary: no dysuria and no hematuria Musculoskeletal: no back pain and no neck pain Integumentary: no rash and no lesions Neurologic: as per Subjective / HPI Psychiatric: as per Subjective / HPI and + anxiety Hematologic / Lymphatic: no easy bleeding and no easy bruising Exam (Neuro) Constitutional: well developed and well nourished; no acute distress Eyes: normal visual ortiz by confrontation, PERRL, normal accommodation and EOM intact bilaterally; no fundoscopic abnormality, no nystagmus and no papilledema Cardiovascular: Vessels: normal carotid upstroke; no carotid bruit Neurologic: Oriented to:: Person, Place and Time Memory: Short Term Intact and Remote Intact Attention: Span Intact and Concentration Intact Language: Naming Objects and Repeating Phrases Speech Fluency: negative Dysarthria Speech Aphasia: negative Aphasia Fund of Knowledge: Current Events, Past History and Vocabulary Cranial Nerves: Normal II (Visual ortiz full to confrontation, visual acuity normal), III, IV, (Pupils equal round reactive to light and accommodation, eye movements normal), V (Facial sensation intact), VII (There is no facial droop or weakness), VIII (Hearing intact), IX, X (Palate elevates to midline), XI (Shoulder shrug intact) and XII (Tongue protrudes to midline) Motor Strength: Normal Lower Extremities and Normal Upper Extremities; negative Pronator Drift Motor Tone: Normal Lower Extremities and Normal Upper Extremities Muscle Bulk/Involuntary Movements: No Involuntary Movements; negative Muscle Atrophy Sensation: Light Touch Intact, Pain/Temperature Intact, Vibration Intact and Proprioception Intact Coordination: Normal; negative Limited Balance, Dysdiadochokinesia, Finger-Nose Abnormal or Heel-Tovar Abnormal Deep Tendon Reflexes: Rt Triceps: 2+, Lt Triceps: 2+, Rt Biceps: 2+, Lt Biceps: 2+, Rt Brachioradialis: 2+, Lt Brachioradialis: 2+, Rt Patellar: 2+, Lt Patellar: 2+, Rt Ankle: 2+ and Lt Ankle: 2+ Special Tests: negative Babinski Present Gait: Normal Station and Gait Results & Data ([facility]) Vital Signs (Past 12 Hours) Vital Signs Temp Pulse Pulse Resp BP Pulse Ox O2 Del Method 05/01/22 07:44 36.2 C L 90 18 113/73 99 Room Air 05/01/22 01:01 67 16 93/52 L 97 Room Air Laboratory Results WBC 7.19, hemoglobin 14.0, hematocrit 40.4, platelet count 319, sodium 138, potassium 3.9, BUN 15, creatinine 0.76, glucose 84, AST 22, ALT 15, TSH 2.795. CSF clear, colorless, no xanthochromia, CSF WBC 6, RBC 20, glucose 44, protein 14.5, CSF bio fire encephalitis panel negative, urine drug screen negative, ethyl alcohol less than 10.0. Upper respiratory nasopharyngeal PCR positive for coronavirus [facility] 1. SARS-CoV-[address] testing [address] Findings CT of the head negative for hemorrhage or acute process. I independently review ed the images. No hydrocephalus or other abnormality. PG Care Time/CCT Total # of Minutes Spent Total Time Spent with Patient: Total time spent is greater than 50% in coordination of care (as documented) at patient's floor/unit and/or counseling patient: Coding Level of Care Code 52722 INT INP/OBS CARE 375MIN Diagnoses AMS (altered mental status) R41.82 Coronavirus infection B34.2
--- NOTE | 2022-05-01 11:38 | Electroencephalogram ---
EEG Procedure Note Date of Service May 01, 2022 Start / End Times Start Time: 11:13 AM End Time: 11:33 AM Referring Physician Ankur Lopez MD History Altered mental status, rule out seizure activity Home Medication List Medication Instructions Recorded Confirmed Type amoxicillin 400 mg/5 mL oral 04/30/22 History suspension famotidine 20 mg tablet 20 mg 04/30/22 History norgestimate 0.18 mg/0.215 mg/0.25 tab 04/30/22 History mg-ethinyl estradiol 25 mcg tablet ([id number]-Ks-Eregxr) Inpatient Medication List Acetaminophen (Acetaminophen 325 Mg Tab) 650 mg PO Q4H PRN PRN Reason: Pain or fever Stop: 05/30/22 20:05 Last Admin: 04/30/22 23:24 Dose: 650 mg Documented By: MANJIT Discontinued Medications Acetaminophen (Acetaminophen 325 Mg Tab) 650 mg PO NOW STA Stop: 04/30/22 18:33 Last Admin: 04/30/22 18:37 Dose: 650 mg Documented By: ZACHARY Haloperidol Lactate (Haloperidol Lactate 5 Mg/Ml 1 Ml Vial) 5 mg IM NOW STA Stop: 04/30/22 21:49 Last Admin: 04/30/22 22:08 Dose: 5 mg Documented By: MANJIT Sodium Chloride (Nss 1000ml) 1,000 mls @ 999 mls/hr IV .Q1H1M ONE Stop: 04/30/22 14:37 Last Infusion: 04/30/22 14:58 Dose: 0 mls/hr Documented By: Admin: 04/30/22 13:30 Dose: 999 mls/hr Documented By: BRIT Ioversol (Optiray 350 100ml) 80 ml IV ONCE ONE Stop: 04/30/22 14:29 Last Admin: 04/30/22 14:28 Dose: 80 ml Documented By: CISCO Lorazepam (Lorazepam 2 Mg/1 Ml Vial) 2 mg IM NOW STA Stop: 04/30/22 23:06 Last Admin: 04/30/22 23:21 Dose: 2 mg Documented By: MANJIT Miscellaneous Information (Patient's Allergy Info Needs Entered) 1 each N/A ONE STA Stop: 04/30/22 23:07 Last Admin: 05/01/22 01:11 Dose: 1 each Documented By: MANJIT Description This is a 21 electrode EEG with a single channel dedicated to limited EKG. The electrodes were placed in accordance with the International 10-20 system. EEG performed for 10 minutes only due to significant patient agitation and aggressive behavior. Patient threw a box of Kleenex at the robotics technologist and then started pulling her leads off. There is a posterior dominant rhythm of 10 Hz which is symmetrically distributed and attenuates with eye opening. There is a normal anterior to posterior organization. Photic stimulation is unremarkable. Hyperventilation was not performed. There is a symmetric frontal beta rhythm. There is no focal slowing. There are no epileptiform abnormalities. No sleep changes. Interpretation Normal-appearing awake/drowsy EEG. A normal EEG does not completely exclude a diagnosis of epilepsy. Further clinical correlation may be needed. [facility] [place], [place] EEG Procedure Codes Indication for Procedure (1) AMS (altered mental status): Neurology Neurology: 88878 EEG include record awake & drowsy
--- NOTE | 2022-05-01 15:18 | Communication Note ---
Date of Service: May 01, 2022 Updated in discussion with hospitalist providers that Sarah made statements about hearing voices again and that they were telling her to harm herself. Given this agree with hospitalist team that she should be placed on 1-on-1 and cannot leave AMA. Will continue to observe behaviors and re-evaluate as symptoms are waxing and waning more significantly than expected if this was a case of resolving delirium. Will re-evaluate tomorrow and determine if further psychiatric treatment is needed at that time to include possibility for inpatient psychiatric treatment.
[2022-05-01] MEDS ORDERED: OLANZapine 5 MG TABLET PO PRN (16:45)
[2022-05-01] MEDS ORDERED: MELATONIN 3 MG TAB PO PRN (16:51)
[2022-05-01] MEDS ORDERED: LORazepam 0.5 MG TAB PO STA (16:52)
[2022-05-01] MEDS ORDERED: LORazepam 1 MG TAB PO STA (22:48)
--- NOTE | 2022-05-01 23:49 | Magnetic Resonance Report ---
MRI OF THE BRAIN WITHOUT CONTRAST CLINICAL HISTORY: Abrupt change in personality and myoclonic jerks. COMPARISON STUDY: Head CT April 30, 2022. TECHNIQUE: Utilizing a 1.5 Estelle magnet and dedicated coil, multiplanar, multiecho imaging of the bra in was performed without IV contrast. FINDINGS: This exam is moderately compromised by artifact. There are are no convincing foci of restri cted diffusion to suggest acute infarct. No acute intracranial hemorrhage, midline shift or mass effe ct is present. Cavum septum pellucidum is incidentally noted. Basal cisterns are patent. There are no extra axial collections. No intracranial masses are identified on this unenhanced exam. There is mod erate polypoid mucosal thickening of the maxillary and ethmoid sinuses. There is mild frontal sinus m ucosal thickening. Several signal is within normal limits. IMPRESSION: 1. No acute intracranial findings. Exam moderately compromised by artifact. 2. Sinus mucosal thickening, as above. ACT 112: Negative or not required by law. Electronically signed by: Italo Bennett M.D. 05/01/2022 11:47 PM
--- NOTE | 2022-05-02 07:03 | Hospitalist Progress Note ---
Date of Service May 02, 2022 Assessment & Plan (1) Delirium: Plan: (1) AMS (altered mental status): Plan: -Significant change in personality with associated tics. -Prior similar episode in 2017 with mainly mutism without definitive diagnosis but eventually improved with time/amantadine. -Viral vs. autoimmune encephalitis vs. psychiatric response to illness -negative UDS -positive UA -waxing waning symptoms throughout the day -Consult neurology EEG unremarkable, however patient threw tissue box at staff CSF negative biofire, negative CT head recommend brain MRI recommend screening for lupus, DAVID screen with titer, consider DAVID 12 panel -Consult psychiatry concern hyperactive delirium, ongoing waxing waning symptoms, prn melatonin for sleep haldol prn for agitation Reported Auditory Hallucinations with thoughts of self harm after psychiatry visit -discussed with Dr. Cruz -ordered 1:1 -patient not to leave AMA (2) Coronavirus infection: No specific isolation precautions warranted although recommend single room No sinus pain on discussion with patient and she declines antibiotics due to perceived side effects therefore will defer on treatment for possible sinusitis on admission as suspect her illness is all viral. Plan VTE Prophylaxis - low risk Diet - regular Disposition - observation status to med/surg (2) Coronavirus infection: (3) AMS (altered mental status): (4) Sinus congestion: Admission and Anticipated Discharge Date Admission Date: April 30, 2022 Results & Data Results & Data ([facility]) Vital Signs (Past 12 Hours) Vital Signs Temp Pulse Resp BP Pulse Ox O2 Del Method 05/01/22 23:28 36.5 C 65 18 95/59 L 97 Room Air
[2022-05-02] MEDS: ACETAMINOPHEN 325 MG TAB PO PRN ×2 (08:19→12:51)
--- NOTE | 2022-05-02 12:27 | Psychiatric Progress Note ---
Date of Service May 02, 2022 Impression / Recommendations Impression 21 yo woman with no formal psychiatric history with abrupt onset of behavioral changes with increased goal driven activities, disinhibited behaviors, paranoia, auditory hallucinations, delusions, increased irritability, mood lability, confusion, and disorganization coinciding with decreased sleep over the last three days, sinus infection and amoxicillin use. Differential remains broad but given intensifying symptoms and normal EEG delirium seems less likely. Certainly could represent an atypical presentation of acute isatu though the motor tics, repetitive behaviors, and OCD type symptoms are more unusual in primary psychiatry presentations like psychosis or isatu. Almost PANDAS like but this is a pediatric condition and not established or necessary recognized in adults (though did have apparent odd presentation in 2017 but very self limited). Degree of agitation also inconsistent with typical conversion disorder presentation. Paranoia toward men but denies any history of trauma but unusual trauma response certainly possible. Did make statement of having thoughts of self-harm yesterday but today denies this, does not appear to be responding to internal stimuli and thought content is reality based and future focused. At this point she likely would not meet 302 criteria as denying SI and HI and showing she is able to meet basic self-care needs albeit disorganized and markedly irritable but not to degree that involuntary hospitalization could be justified. I do think she could benefit from inpatient psychiatric hospitalization if all other medical causes are ruled out but would need to assess if she would be voluntary for this at time of medical clearance. Currently she states she would not be interested nor is family. Acute risk of self harm to self is low given denial of SI and future oriented and no evidence of psychosis nor auditory hallucinations. Acute risk of harm to others is low given no overt aggression toward others though is irritable. 05/02/2022: Atypical presentation, possible isatu given level of irritability, goal increased behaviors, decreased sleep but abrupt onset, motor tics and OCD like behaviors are more unusual. Given poor response to zyprexa, caused further disinhibition, would consider scheduled ativan as this has been helping and less concern for delirium. If this is isatu steroids could lead to significant worsening of mood lability but could be considered if autoimmune process suspected, defer to neurology. Overall, I spent a total of 50 minutes with this case including review of chart records, review of MRI results, direct evaluation of the patient at bedside, counseling the patient and family, discussion of the patient with the hospitalist provider, discussion with the psychiatric liason during clinical rounds, and documentation in the electronic health record. (1) AMS (altered mental status): (2) Delirium: Plan -If asks to leave AMA would assess decision making capacity for this, at this time 302 petition on chart due to statements yesterday but today as of my assessment does not meet full 302 commitment criteria (though not yet medically stable) -would consider ativan 0.5 or 1mg TID po for irritability and agitation -Could consider trial of haldol 5mg po BID prn for agitation Risk Factors Assessment Do You Have Access To A Gun?: No Interval History Identifying Information 21 yo woman and [employer] senior with no formal psychiatric history but one prior episode of abrupt change in behavior in 2017 who was admitted medically for altered mental status. Psychiatry consulted for diagnostic clarifications, recommendations. Chief Complaint "I want to go back to my apartment, I need to get back to school". Review of Systems Notes intermittent sleep per RN report, eating Subjective Subjective Patient was seen & assessed and interval progress reviewed. Yesterday afternoon told them hospitalist team she was hearing voices to harm herself and placed on a 1-on-1. Multiple attempts last night to get an MRI with some increased paranoia toward another male patient who was in the waiting area. Recieved 5mg zyprexa po which seemed to cause worsening of irritability and anxiety per RN notes. More calm after ativan 1mg po dose. Slept some overnight. Today has been more agitated with periods of yelling at her parents/frustrated with them. Odd repetitive behaviors such as pulling out all the tissues from the box, tapping the table (possibly in series of 3 but unclear), and ongoing disorganized behaviors like asking for water and then pouring it out and then refilling then pouring it out again. She is seen this afternoon and both her parents are present. She is sitting on the bed but gets up and tells me she needs to go home back to her apartment and that being in the hospital is making her feel worse. States frustration that her parents brought her to the hospital. Stomps her feet on the floor to emphasis her point and asks for lunch. Denies hearing any voices and denies making any statements of self-harm. Denies SI. Fully oriented. At one point pulls the pillows and blankets off her bed and places it all in the hallway. Is observed by psych liason to engage in repetitive behavior of shaking pretzel bag before removing a few pretzels and then going through the series of actions again. Spoke with her parents in the sidhu as well. They note today's behaviors are similar to what they've been observing the last few evenings. This is the first time she's been like this in the morning. They deny hearing her make any statements of SI nor observing any aggressive behaviors toward others. Discussed possibility that given intensifying behaviors that this could represent a primary psychiatric condition like bipolar disorder which they understand. At this point they are also not in support of psychiatric hospitalization, if other medical causes are ruled out, and would prefer to be with her at her apartment noting that they can take shifts so that one of them is with her until she graduates. Reviewed my concern that if these behaviors persist or escalate I would anticipate it would be very difficult for her to function at home or attend classes. They agree they would bring her back to the ED if behaviors worsened or they had any concerns for her safety or safety of others. Physical Exam Psychiatric Orientation: alert and oriented x 3 Apperance: appropriately dressed and appropriately groomed Eye Contact: good eye contact Motor Behavior: + psychomotor agitation Speech: + loud speech and normal rate/rhythm/volume of speech Affect: + irritable affect Mood: + irritable mood; no depressed mood and no anxious mood Thought Process: goal directed thought process Thought Content: + obsessions, reality based without delusions and + compulsions Suicidal Thoughts: denies suicidal thoughts Homicidal Thoughts: denies homicidal thoughts Hallucinations: no auditory hallucinations and no visual hallucinations Cognition: remote memory grossly intact, attention grossly intact and language grossly intact; + recent memory not intact (not in last two days ) Estimated Intelligence: consistent with education level Insight: + limited insight Judgement: + limited judgement Vital Signs (Past 24 Hours) Last Vital Signs Temp 36.3 C L 05/02/22 08:21 Pulse 88 05/02/22 08:21 Resp 16 05/02/22 08:21 BP 108/73 05/02/22 08:21 Pulse Ox 96 05/02/22 08:21 O2 Del Method 05/02/22 08:21 Results & Data ([facility]) Laboratory Results Laboratory Results - last 24 hr 05/01/22 05/01/22 05/02/22 15:19 15:19 07:02 LA PTT Screen Pending Ammonia 60.0 DAVID Screen Pending SS-A/Ro Antibody Pending SS-B/La Antibody Pending Sm (Rosales) Antibody Pending SEWER SEPARATION DESIGNER Antibody Pending Scl-70 Scleroderma Ab Pending Anti-ds DNA (Crithidia) Pending Chromatin Antibody Pending Anti-Centromere Ab Pending Thyroid Antimicrosomal Pending Anti-Cardiolipin IgG Ab Pending Anti-Cardiolipin IgA Ab Pending Anti-Cardiolipin IgM Ab Pending Complement C3 Pending Complement C4 Pending Current Inpatient Medications Current Inpatient Medications: Current Inpatient Medications Acetaminophen (Acetaminophen 325 Mg Tab) 650 mg PO Q4H PRN PRN Reason: Pain or fever Stop: 05/30/22 20:05 Last Admin: 05/02/22 08:19 Dose: 650 mg Melatonin (Melatonin 3 Mg Tab) 3 mg PO HS PRN PRN Reason: Sleep Stop: 05/31/22 16:50
--- NOTE | 2022-05-02 16:28 | Discharge Summary ---
Date of Service May 02, 2022 Admission HPI Per Admitting Provider Sarah Hernandez is a 21 year old female who presents to the ER with change in mental status. History is mostly taken from her mother at bedside due to patient altered mental state. Reportedly no baseline psychiatric illness or medications. She is a [employer]. Nasal congestion started around April 22. Worsening symptoms but without fever or chills. She was prescribed amoxicillin for unclear diagnosis but presumably sinusitis on Apr 24 but reportedly started on Apr 26 for 3 days then stopped due to perceived side effects although she cannot tell me what these were. Abrupt change in mental status started 4-5 days ago with associated combative behavior and myoclonic jerks progressively getting worse since then. Her mother reports a similar episode after a viral illness with her being hospitalized at [facility] in 2017. No definitive diagnosis and she reports lumbar puncture was not a good sample and not diagnostic. She was passed between neurology and psychiatry until seeing a neuropsychiatrist as an outpatient and reportedly improved on amantadine. Viral encephalitis was mentioned as a possible diagnosis. Admission Exam Per Admitting Provider Constitutional: WD/WN, vitals as above Eyes: Patient non-compliant with exam Respiratory: normal respiratory effort, lungs clear to auscultation Cardiovascular: RRR, no murmur, no edema Gastrointestinal (Abdomen): normal bowel sounds, soft, nontender, no hepatosplenomegaly Musculoskeletal: no cyanosis or clubbing, extremities motor strength 5/5 Skin: no rashes, warm and dry Neurologic: moves all extremities, awake and + confused; no focal motor deficits (no lateralizing deficit) Psychiatric: Orientation: alert; + not oriented x 3 (no answering questions) Apperance: appeared stated age Motor Behavior: + psychomotor agitation; + abnormal motor movements (bilateral sudden jerking movements of extremities) Principal Diagnosis Hyperactive Delirium Discharge Exam Constitutional: WD/WN, vitals as above Eyes: PERRL, conjunctivae normal, anicteric sclerae ENMT: external ear and nose normal, oropharynx normal Neck: trachea midline, no thyromegaly Respiratory: normal respiratory effort, lungs clear to auscultation Cardiovascular: RRR, no murmur, no edema Gastrointestinal (Abdomen): Inspection/Auscultation: abdomen normal to inspection Percussion/Palpation: abdomen soft; abdomen nontender Skin: no rashes, warm and dry Neurologic: CN's II-XI intact bilaterally Psychiatric: Orientation: alert and oriented x 3 Eye Contact: + poor eye contact Discharge Data Allergies Allergy/AdvReac Type Severity Reaction Status Date / Time No Known Allergies Allergy Verified 05/01/22 01:11 Consultations 04/30/22 20:06 Consult Neurology Routine Consult Psychiatry Routine Ordered Studies 04/30/22 13:36 CT head/brain wo/w con Stat 05/01/22 07:00 MR brain wo con Routine Hospital Course (1) Delirium: 21F with no relevant PMH here for AMS. (1) AMS (altered mental status): -Significant change in personality with associated tics. -Prior similar episode in 2017 with mainly mutism without definitive diagnosis but eventually improved with time/amantadine. -Viral vs. autoimmune encephalitis vs. psychiatric response to illness -negative UDS, positive UA -waxing waning symptoms throughout the day -medically stable -Consult neurology EEG unremarkable, CSF negative biofire, negative CT head, negative brain MRI ordered labs for lupus, DAVID 12 panel does not appear to have neurologic etiology, possible psychiatric -Consult psychiatry concern for hyperactive delirium, however given normal EEG delirium less likely patient no longer has thoughts of self harm, does not qualify for 302 suggestion inpatient psychiatric care, however patients and parents decline responded poorly to zyprexa for agitation Home on Ativan 0.5mg TID PRN for agitation To have outpatient primary care follow up (2) Coronavirus infection: (3) AMS (altered mental status): (4) Sinus congestion: Total Time Total Time Spent Total Time Spent (In Minutes): see attending attestation Discharge Plan Discharge Items Patient Disposition: Home - Self-Care Reason For Visit: ALTERED MENTAL STATUS Discharge Diagnosis: Hyperactive Delirium Activity: Resume your previous activity Non-emergency contact: Primary Care Provider Call non-emergency contact if: you have any medication questions, your symptoms worsen and your pain is concerning for you Follow-up/Referrals: PCP,NO [Primary Care Provider] - Diet: Regular Addtl Attending Provider Instructions: You were admitted to the hospital for Altered Mental Status. You were seen by Neurology and Psychiatry. At this time your head imaging looks normal, and you tested negative for common bacterial or viral illnesses. We are still awaiting the results of your autoimmune panel. Your symptoms are still ongoing at this time. A stay at a psychiatric hospital may provide more time and clarity to determine a psychiatric illness. While at home, we will provide you with some medication to calm you down during periods of agitation. However, if your agitation continues to worsen, you begin having thoughts of self harm, or if you have hallucinations, please return to the hospital. A discharge summary will be sent to your primary care physician to ensure contin uity of care. Please bring this discharge summary with you to your next office appointment so that your provider can review it at that time. Follow-up appointments: Make a follow-up appointment with your PCP within the next week. It is very important that you follow up with them shortly after discharge from the hospital. Keep all your follow-up appointments as already scheduled. If you cannot make an appointment, notify your provider. Medications: Your medication list has been reviewed and reconciled upon discharge to ensure accuracy and continuity of care. An updated list of all your medications is included with your hospital discharge paperwork. Please review this list closely, and make note of any changes. * We sent a new medication called Ativan to your pharmacy. Take Ativan 0.5mg 1 tab every 8 hours as needed for agitation Take your medications as instructed; do not skip a dose of your medicines. Make sure all of your doctors know every medicine you are taking (including cbbn-izm-fbdhebg medicines, vitamins, and supplements). Call your primary care provider before taking any new medicines (including aste-wnv-bhmhpoe medicines, vitamins, and supplements), because some of these may interact with your current medications, or may make your symptoms worse. Tell your primary care provider if you cannot afford your medications. CONTACT YOUR PRIMARY CARE PROVIDER if you experience any of the following: Difficulty breathing, increased fatigue Hallucinations, thoughts of self harm, worsening agitation Difficulty following your treatment plan, or difficulty taking medications CALL 911 OR GO TO THE EMERGENCY DEPARTMENT if you experience any of the following: Sudden, severe abdominal pain or nausea/vomiting Severe chest pain, or chest pain that radiates (moves) to your jaw or arm Sudden, severe shortness of breath or difficulty breathing Thank you for allowing us to participate in your care. Pending Studies at Discharge: No Stand-Alone Forms: My InvoiceSharing, Smoking Cessation Medications and DC Order Prescriptions: New lorazepam 0.5 mg tablet 0.5 mg PO TID PRN (Reason: anxiety) Qty: 20 0RF Continued famotidine 20 mg tablet 20 mg norgestimate-ethinyl estradiol [Akt-Ef-Erldiu] 0.18/0.215/0.25 mg-25 mcg tablet Discontinued amoxicillin 400 mg/5 mL suspension for reconstitution Discharge Orders: Discharge Order (Routine); Ordered 05/02/22 Ordered By: Brittani Savage Admission Data Admit Date/Time: 05/02/22 12:02 Attending Provider: Rosita Guillory Admit Provider: Ankur Lopez Primary Care Provider: PCP,NO Other Providers: Leandro Davis ; Lisa Cruz ; Melisa Tena ; Ankur Lopez Other Interventions: Discharge Summary Assessment (RN) Last Done: 05/02/22 17:45 Supervising Physician Co-Signing Physician Notes Resident Physician Supervision Note: I independently interviewed and examined the patient and verified the monk history and physical, reviewed labs and image studies and agree with resident findings and care plan. Resident Activity Tracking Resident Involvement: Resident Care Provided Care Provided: Adult Hospital Medicine
[2022-05-08 23:33] LABS: Albumin 4.3 g/dL (3.5-5.2); Albumin, CSF 5.7 mg/dL (8.0-42.0); IgG CSF 0.7 mg/dL (0.8-7.7); IgG Index, CSF 0.64 (<0.66); IgG Serum 822 mg/dL (600-1640); Myelin Basic Protein <2.0 mcg/L (<=4.0); Synthesis Rate, IgG CSF -2.3 mg/24 h (-9.9-3.3)
[2022-05-09 16:17] LABS: PTT LA Screen 32 sec (<=40)
== END 2022-05-02 18:50 | disposition home or self-care (01) ==
LOC: 3E 11:41 → ED 11:41 → SUATTDRO 16:34 → 3E 20:19